=== PATIENT | female | born 1950 | race Asian ===

== ENCOUNTER 2016-10-30 08:55 | Day surgery (SDC) | payer BC ==
[~2016-10-30] VITALS: Ht 157.5 cm; Wt 54.4 kg
[~2016-10-30 08:55] MED LIST: METF500T4 PO; VITAMIN D PO; [UNRECOGNIZED DRUG - CODE] PO
[2016-10-30] MEDS ORDERED: TRIAMCINOLONE ACETONIDE 40MG/ML 1ML VIAL ONE (09:20)
[2016-10-30] MEDS ORDERED: BACITRACIN ZINC 15GM TUBE TOP ONE (09:21)
[2016-10-30] MEDS ORDERED: GENTAMICIN SULF 40MG/ML 2ML VIAL ONE (09:21)
[2016-10-30] MEDS ORDERED: LIDOCAINE HCL 1% 20ML VIAL (Pyxis) INJ ONE ×2 (09:22→11:38)
[2016-10-30] MEDS ORDERED: BUPIVACAINE HCL/PF 0.5% (5MG/ML) 10ML ONE (09:22)
[2016-10-30] MEDS ORDERED: DEXAMETHASONE 4MG/ML 1ML VIAL ONE ×2 (09:23→11:38)
[2016-10-30] MEDS ORDERED: LACTATED RINGERS 1,000 ML IV SCH (10:45)
[2016-10-30] MEDS ORDERED: FENTANYL CITRATE/PF 50MCG/ML 2ML VIAL ONE (11:20)
[2016-10-30] MEDS ORDERED: MIDAZOLAM HCL 2 MG/2 ML VIAL ONE (11:20)
[2016-10-30] MEDS ORDERED: CEFAZOLIN SODIUM 1000MG/VIAL ONE (11:38)
[2016-10-30] MEDS ORDERED: PROPOFOL 200MG/20ML VIAL IV ONE (11:38)
[2016-10-30] MEDS ORDERED: ONDANSETRON HCL 4MG/2ML VIAL ONE (11:38)
[2016-10-30] MEDS ORDERED: SODIUM CHLORIDE 0.9% 10ML VIAL ONE (11:38)
[2016-10-30] MEDS ORDERED: MEPERIDINE HCL/PF 25MG/ML CPJ IV PRN (12:15)
[2016-10-30] MEDS ORDERED: HYDROMORPHONE HCL/PF 2MG/ML CPJ IV PRN (12:15)
[2016-10-30] MEDS ORDERED: ONDANSETRON HCL 4MG/2ML VIAL IV PRN (12:15)
[2016-10-30] MEDS ORDERED: LABETALOL HCL 20MG/4ML CARPUJECT IV PRN (12:15)
== END 2016-10-30 15:15 | disposition home or self-care (01) ==
LOC: OR 08:55
PROVIDERS: ATTEND Podiatrist Foot & Ankle Surgery
DX: M21.611 Bunion of right foot (principal); M47.22 Other spondylosis with radiculopathy, cervical region; E11.9 Type 2 diabetes mellitus without complications; E78.5 Hyperlipidemia, unspecified; E03.9 Hypothyroidism, unspecified; E55.9 Vitamin D deficiency, unspecified; Z85.038 Personal history of other malignant neoplasm of large intestine
CPT/HCPCS: 28296; 73620; 82962; 88304; 88311; 97116; 97161; A4216; C1769; J0690; J1100; J1580; J2250; J2405; J3010; J3301; J3490; J7120; J2704

== ENCOUNTER → 2016-12-25 | Outpatient (CLI) | payer BC | END | disposition home or self-care (01) | LOC: RAD 15:47 | PROVIDERS: ATTEND Podiatrist Foot & Ankle Surgery | DX: M20.11 Hallux valgus (acquired), right foot (principal); M21.611 Bunion of right foot; M85.871 Other specified disorders of bone density and structure, right ankle and foot; M77.31 Calcaneal spur, right foot | CPT/HCPCS: 73630 ==

== ENCOUNTER → 2017-01-11 | Outpatient (CLI) | payer BC ==
[2017-01-11 09:16] LABS: BASOPHILS % 0.6 % (0.0-2.0); EOSINOPHILS % 4.6 % (0.0-5.0); HEMATOCRIT. 42.7 % (36.0-48.0); HEMOGLOBIN. 14.6 g/dL (12.0-16.0); LYMPHOCYTES % 46.1 % (20.0-50.0); MEAN CORPUSCULAR HEMOGLOBIN 30.2 pg (28.0-32.0); MEAN CORPUSCULAR HGB CONC 34.1 g/dL (31.0-37.0); MEAN CORPUSCULAR VOLUME 88.5 fL (81.0-99.0); MEAN PLATELET VOLUME 6.6 fl (7.4-10.4); MONOCYTES % 10.9 % (2.0-8.0); NEUTROPHILS % 37.8 % (40.0-76.0); PLATELET 259 x1000/uL (130-400); RED BLOOD CELL COUNT 4.82 mill/uL (4.2-5.4); RED CELL DISTRIBUTION WIDTH 13.6 % (11.6-14.6); WHITE BLOOD COUNT 6.2 x1000/uL (4.5-11.0)
[2017-01-11 09:58] LABS: ALANINE AMINOTRANSFERASE 51 IU/L (13-61); ALBUMIN 3.9 g/dL (3.4-5.0); ANION GAP 12; CALCIUM 9.1 mg/dL (8.5-10.1); CARBON DIOXIDE 25 mEq/L (21-32); CHLORIDE 105 mEq/L (98-107); INDEX HEMOLYSI 1 (1-3); INDEX ICTERIC 1 (1-4); INDEX LIPEMIC 1 (1-3); LDL CHOLESTEROL 130 mg/dL (5-100); TRIGLYCERIDE 279 mg/dL (0-150); UREA NITROGEN BLOOD 8 mg/dL (7-21); eGFR > 60 mL/min (>60)
[2017-01-11 10:02] LABS: HDL CHOLESTEROL 50 mg/dL (40-59); T4 FREE 0.85 ng/dL (0.76-1.46)
[2017-01-12 08:13] LABS: *CREATININE RANDOM URINE 70.6 mg/dL (Not Estab.); MICROALBUMIN RANDOM URINE 3.1 ug/mL (Not Estab.); MICROALBUMIN/CREATININE RATIO 4.4 mg/g creat (0.0-30.0)
== END | disposition home or self-care (01) ==
LOC: LAB 08:29
PROVIDERS: ATTEND Internal Medicine Endocrinology, Diabetes & Metabolism
DX: E11.9 Type 2 diabetes mellitus without complications (principal); I10 Essential (primary) hypertension; E03.9 Hypothyroidism, unspecified; M85.80 Other specified disorders of bone density and structure, unspecified site
CPT/HCPCS: 36415; 80053; 80061; 82043; 82306; 82570; 83036; 83970; 84439; 84443; 85025